=== PATIENT | male | born 1985 | race Caucasian/White ===

== ENCOUNTER → 2017-01-12 | Day surgery (SDC) | payer OTHER ==
[~2017-01-12] MED LIST: ACETAMINOPHEN650 M1 PO; ALEVE; BENTYL20 M1 PO; GABAPENTIN300 M2 PO; HYDROCODON-ACE1 EAC9 PO; LEVAQUIN750 M1 PO; MIDRIN CAPSULE1 CAP PO; PHENERGAN25 M1 PO; PROTONIX PO; REQUIP1 MG PO
--- NOTE | ~2017-01-12 | CR84 ---
[facility] A Service of [facility] RADIOLOGY TEXT RESULTS PATIENT: MARTÍN CORDERO LOCATION: [facility] : 87 UNIT #: [id number] AGE: [address]: David Hart MD SEX: M ORDER DR: [id number] [facility] [address] [place], [place] [address] [id number] O MR#: [id number] Acc #: [id number] NAME: MARTÍN CORDERO : 1985 SEX: M STUDY DATE/TIME: 01/12/2017 16:48 UNIT: SECURITY COMPLIANCE ENGINEER ROOM: STUDY DESCRIPTION: CR ERCP Biliary and Pancr SI Attending Physician: David Hart M.D. Ordering Physician: David Hart M.D. Primary Care Physician: Aguila George M.D. MEDICAL IMAGING REPORT This report is preliminary unless electronic signature is present EXAM ERCP with fluoroscopy 01/12/2017 HISTORY 31-year-old male for CBD stent removal. Previous history of obstructive jaundice and common bile duct stone. COMPARISON ERCP 10/27/2016. FINDINGS 4 spot fluoroscopic images were obtained during ERCP procedure performed by Dr. Hart. Fluoroscopy time 28 seconds was documented by the technologist. Contrast was injected into the common bile duct. There is mild intrahepatic and extrahepatic biliary ductal dilation. The first 2 images demonstrate occlusion balloon in the distal CBD. No definite retained stones are seen on the submitted images. The brief procedure notes document stones in the duct which underwent balloon sweep for removal. The gallbladder appears surgically absent. Pancreatic duct was apparently not sought. Please refer to the endoscopist report for additional pertinent findings and recommendations. Dictated by... Alessia Caballero M.D. THIS IS AN ELECTRONICALLY VERIFIED REPORT Alessia Caballero M.D. at 01/15/2017 2:04 PM ARELI/javier TD: 01/15/2017 10:59 [facility] A Service of [facility] / [facility] RADIOLOGY TEXT RESULTS PATIENT: [facility]ARTÍ[facility] CORDERO [id number] [birth year] UNIT #: [id number] AGE: [address]: David Hart MD SEX: M ORDER DR: JOB #: [id number] MEDICAL IMAGING REPORT COPY
--- NOTE | ~2017-01-12 | OR ---
Unit #: [id number] #: [id number] Patient: MARTÍN CORDERO [id number] [address] [place], [place] [address] [id number] O MR#: [id number] NAME: MARTÍN CORDERO ROOM: Date of Procedure: 01/12/2017 Admission Date: 01/12/2017 Surgeon: David Hart M.D. : 1985 Attending Physician: David Hart M.D. Primary Care Physician: Aguila George M.D. OPERATIVE REPORT PREOPERATIVE DIAGNOSES The patient had common bile duct stone removal followed by placement of biliary stent and laparoscopic cholecystectomy. He has come for elective biliary stent removal. PROCEDURES PERFORMED 1. Endoscopic retrograde cholangiopancreatography and stent removal. 2. Endoscopic retrograde cholangiopancreatography and stone removal. POSTOPERATIVE DIAGNOSES The patient has small amount of debris, which was removed from the common bile duct after removal of the biliary stent. A normal occlusion cholangiogram was demonstrated towards the end. Excellent biliary drainage was established. RECOMMENDATIONS No further followup is indicated. The patient will be followed up on an as needed basis in the future. SEDATION USED MAC. DESCRIPTION OF PROCEDURE Following detailed explanation of potential risks and complications of an ERCP, namely perforation, bleeding, and complications related to sedation with pancreatitis, the patient was brought to GI lab and laid in the left semiprone position. Sedation using MAC was given. The lateral viewing duodenoscope was advanced through the oral cavity into the esophagus and advanced into the stomach. Pylorus was intubated in the usual fashion. Scope was advanced in deep descending duodenum. Upon shortening the scope, major papilla and ampullary area was visualized en face. The biliary stent was seen in place in normal position. This was removed using polypectomy snare and brought out and delivered outside. The patient was then reintubated and through the previous sphincterotomy site, a guidewire and a sphincterotome was introduced and cholangiogram was obtained. A small filling defects were seen. The common bile duct was then swept with a 9 to 12 mm retrieval balloon at 12 mm inflation pressures 3 to 4 times. Some residual stone and debris were delivered in the duodenum. Normal occlusion cholangiogram was demonstrated towards the end with excellent biliary drainage. The scope and accessories were then withdrawn. The patient returned to the recovery area. He tolerated the procedure without any postprocedure complications. Unit #: [id number] #: [id number] Patient: MARTÍN CORDERO Dictated by.Balbir Barber TD: 01/13/2017 04:31 JOB #: [id number] OPERATIVE REPORT X David Hart MD X PROCEDURE OPERATIVE NOTE
== END | disposition home or self-care (01) ==
LOC: COPS 13:41
DX: Z46.59 Encounter for fitting and adjustment of other gastrointestinal appliance and device (principal); K80.50 Calculus of bile duct without cholangitis or cholecystitis without obstruction; K21.9 Gastro-esophageal reflux disease without esophagitis; F17.210 Nicotine dependence, cigarettes, uncomplicated; Z79.899 Other long term (current) drug therapy; Z90.49 Acquired absence of other specified parts of digestive tract; Z98.890 Other specified postprocedural states
CPT/HCPCS: 74330; J1610; J2250